=== PATIENT | female | born 1980 | race Caucasian/White ===

== ENCOUNTER 2023-05-20 11:36 | Outpatient (CLI) | payer BC | END 2023-05-20 11:37 | disposition home or self-care (01) | LOC: CSHMAMMO 11:36 | PROVIDERS: ATTEND Obstetrics & Gynecology | DX: Z12.31 Encounter for screening mammogram for malignant neoplasm of breast (principal) | CPT/HCPCS: 77063; 77067 ==

== ENCOUNTER 2024-12-11 13:08 | Outpatient (CLI) | payer BC | END 2024-12-11 13:09 | disposition home or self-care (01) | LOC: CSHMAMMO 13:08 | PROVIDERS: ATTEND Obstetrics & Gynecology | DX: Z12.31 Encounter for screening mammogram for malignant neoplasm of breast (principal) | CPT/HCPCS: 77063; 77067 ==